=== PATIENT | male | born 1975 | race American Indian/Alaskan Native ===

== ENCOUNTER 2019-07-17 09:51 | Emergency (ER) | payer OTHER ==
[2019-07-17 09:56] VITALS: BP 136/78
[2019-07-17] MEDS ORDERED: IBUPROFEN 800 MG TAB PO ONE (10:48)
--- NOTE | 2019-07-17 10:50 | Emergency Department Report ---
ED ENT HPI - General Chief complaint: Dental/Oral Stated complaint: LFT SIDE TOOTHACHE SWELLING/PAIN Time Seen by Provider: 07/17/19 10:22 Source: patient Mode of arrival: Ambulatory Limitations: No Limitations - History of Present Illness Initial comments: Patient reports left upper and lower toothaches for several months. Denies fever, denies facial swelling. Has not seen a dentist MD complaint: tooth pain -: month(s) (3) Location: other (left upper and lower molars) Severity: moderate Quality: aching Consistency: constant Improves with: none Worsens with: eating Context- Dental: poor dental care Associated Symptoms: toothache. denies: fever, pain with swallowing, sore throat - Related Data Previous Rx's Medication Instructions Recorded Last Taken Type Naproxen [Naprosyn] 500 mg PO BID #20 tablet 07/17/19 Unknown Rx Penicillin V Potassium 500 mg PO TID #30 tablet 07/17/19 Unknown Rx Allergies Allergy/AdvReac Type Severity Reaction Status Date / Time No Known Allergies Allergy Unverified 07/17/19 09:53 ED Dental HPI - General Chief complaint: Dental/Oral Stated complaint: LFT SIDE TOOTHACHE SWELLING/PAIN Time Seen by Provider: 07/17/19 10:22 Source: patient Mode of arrival: Ambulatory Limitations: No Limitations - Related Data Previous Rx's Medication Instructions Recorded Last Taken Type Naproxen [Naprosyn] 500 mg PO BID #20 tablet 07/17/19 Unknown Rx Penicillin V Potassium 500 mg PO TID #30 tablet 07/17/19 Unknown Rx Allergies Allergy/AdvReac Type Severity Reaction Status Date / Time No Known Allergies Allergy Unverified 07/17/19 09:53 ED Review of Systems ROS: Stated complaint: LFT SIDE TOOTHACHE SWELLING/PAIN Other details as noted in HPI Comment: All other systems reviewed and negative Constitutional: denies: chills, fever ENT: dental pain ED Past Medical Hx - Past Medical History Previous Medical History?: No - Surgical History Past Surgical History?: No - Medications Home Medications: Home Medications Medication Instructions Recorded Confirmed Last Taken Type Naproxen [Naprosyn] 500 mg PO BID #20 tablet 07/17/19 Unknown Rx Penicillin V Potassium 500 mg PO TID #30 tablet 07/17/19 Unknown Rx ED Physical Exam - General Limitations: No Limitations General appearance: alert, in no apparent distress - Head Head exam: Present: atraumatic, normocephalic - Eye Eye exam: Present: normal appearance - ENT ENT exam: Present: other (no facial swelling noted; dental caries present; left lower molars eroded down to the gum line; left upper molar gum line is eroding superiorly; teeth tender to percussion) - Neck Neck exam: Present: normal inspection, other (no signs of Erick's angina) - Respiratory Respiratory exam: Present: normal lung sounds bilaterally. Absent: respiratory distress - Cardiovascular Cardiovascular Exam: Present: regular rate, normal rhythm - GI/Abdominal GI/Abdominal exam: Absent: distended - Extremities Exam Extremities exam: Present: normal inspection - Neurological Exam Neurological exam: Present: alert, oriented X3 - Psychiatric Psychiatric exam: Present: normal affect, normal mood - Skin Skin exam: Present: warm, dry, intact, normal color ED Course Vital Signs 07/17/19 09:55 Temperature 97.8 F Pulse Rate 88 Respiratory 20 Rate Blood Pressure 136/78 [Left] O2 Sat by Pulse 98 Oximetry ED Medical Decision Making - Differential Diagnosis dental caries Critical care attestation.: If time is entered above; I have spent that time in minutes in the direct care of this critically ill patient, excluding procedure time. ED Disposition Clinical Impression: Tooth ache Disposition: DC-01 TO HOME OR SELFCARE Is pt being admited?: No Condition: Stable Instructions: Dental Caries (ED), Toothache (ED) Prescriptions: Naproxen [Naprosyn] 500 mg PO BID #20 tablet Penicillin V Potassium 500 mg PO TID #30 tablet Referrals: [facility] [Outside] - 3-5 Days Time of Disposition: 10:50
== END 2019-07-17 11:09 | disposition home or self-care (01) ==
LOC: ED 09:51
DX: K08.89 Other specified disorders of teeth and supporting structures (principal); Z79.899 Other long term (current) drug therapy
CPT/HCPCS: 99282